=== PATIENT | male | born 1970 | race Caucasian/White ===

== ENCOUNTER 2019-01-22 11:23 | Outpatient (CLI) | payer SELFPAY ==
[2019-01-22 12:39] LABS: BASOPHILS % 1.2 % (0.0-1.5); EOSINOPHILS % 2.3 % (0.0-6.8); MEAN CORPUSCULAR HEMOGLOBIN 30.2 pg (28.0-34.0); MONOCYTES % 4.5 % (0.0-11.0); NEUTROPHILS # 5.2 # k/uL (1.4-7.7)
[2019-01-22 13:13] LABS: eGFR (Non-African) > 60
== END 2019-01-22 11:30 ==
LOC: RT 11:23
PROVIDERS: ATTEND Family Medicine
DX: Z02.1 Encounter for pre-employment examination (principal)
CPT/HCPCS: 36415; 80053; 80061; 85025; 86703; 86704; 86735; 86762; 86765; 86780; 86803